=== PATIENT | male | born 1945 | race Caucasian/White ===

== ENCOUNTER 2017-07-08 10:03 | Outpatient (CLI) | payer MEDICARE ==
[2017-07-08 11:05] LABS: ALT (SGPT) 17 U/L (8-55); AST (SGOT) 33 U/L (5-34); Albumin 2.8 g/dL (3.4-4.8); Alkaline Phosphatase 144 U/L (40-150); Anion Gap 14 mmol/L (10-20); BUN (Urea Nitrogen) 7 mg/dL (8.4-25.7); Bilirubin, Total 1.9 mg/dL (0.2-1.2); Calc. Creatinine Clearance 0 mL/min (70-130); Calcium 8.6 mg/dL (7.8-10.44); Carbon Dioxide 30 mmol/L (23-31); Chloride 94 mmol/L (98-107); Estimated GFR-MDRD Greater than 90; Globulin 4.6 g/dL (2.4-3.5); Glucose 106 mg/dL (80-115); Potassium 3.4 mmol/L (3.5-5.1); Protein, Total 7.4 g/dL (5.8-8.1); Sodium 135 mmol/L (136-145)
[2017-07-08 11:40] LABS: Eosinophils 4 % (0-10); Hemoglobin 12.8 g/dL (14.0-18.0); Lymphocytes 12 % (21-51); MDiff Complete? YES; Mean Corpuscular HGB CONC 33.9 g/dL (32.0-36.0); Mean Corpuscular Volume 100.1 fl (80.0-94.0); Monocytes 10 % (0-10); Neutrophil 74 % (42-75); PLT Morphology Comment Appears Adequate; Platelet Count 318 thou/uL (130-400); RBC Distribution Width 11.8 % (11.5-14.5); Red Blood Cell (RBC) Count 3.78 mill/uL (4.70-6.10); White Blood Cell (WBC) Count 8.5 thou/uL (4.8-10.8)
== END 2017-07-08 10:04 | disposition home or self-care (01) ==
LOC: MADLABBHPM 10:03
PROVIDERS: ATTEND Family Medicine
DX: R60.9 Edema, unspecified (principal)
CPT/HCPCS: 36415; 80053; 83880; 84443; 85025

== ENCOUNTER 2017-08-08 14:24 | Outpatient (CLI) | payer MEDICARE ==
[2017-08-08 15:05] LABS: ALT (SGPT) 12 U/L (8-55); AST (SGOT) 29 U/L (5-34); Albumin 3.1 g/dL (3.4-4.8); Alkaline Phosphatase 177 U/L (40-150); Anion Gap 17 mmol/L (10-20); BUN (Urea Nitrogen) 9 mg/dL (8.4-25.7); Calc. Creatinine Clearance 0 mL/min (70-130); Calcium 9.4 mg/dL (7.8-10.44); Carbon Dioxide 26 mmol/L (23-31); Chloride 95 mmol/L (98-107); Estimated GFR-MDRD Greater than 90; Glucose 102 mg/dL (80-115); Potassium 4.1 mmol/L (3.5-5.1); Protein, Total 8.1 g/dL (5.8-8.1); Sodium 134 mmol/L (136-145)
== END 2017-08-08 14:25 | disposition home or self-care (01) ==
LOC: MADLABBHPM 14:24
PROVIDERS: ATTEND Family Medicine
DX: K70.30 Alcoholic cirrhosis of liver without ascites (principal)
CPT/HCPCS: 36415; 80053

== ENCOUNTER 2017-08-29 15:40 | Outpatient (CLI) | payer MEDICARE ==
[2017-08-29 16:07] LABS: #Basophils 0.1 thou/uL (0.0-0.2); #Eosinphils 0.3 thou/uL (0.0-0.7); #Lymphocytes 1.3 thou/uL (1.20-3.40); #Monocytes 0.7 thou/uL (0.11-0.59); #Neutrophils 4.4 thou/uL (1.40-6.50); %Basophils 0.9 % (0.0-1.0); %Lymphocytes 18.9 % (21.0-51.0); %Monocytes 10.8 % (0.0-10.0); %Neutrophils 65.4 % (42.0-75.0); Hemoglobin 11.6 g/dL (14.0-18.0); Mean Corpuscular HGB CONC 33.2 g/dL (32.0-36.0); Mean Corpuscular Hemoglobin 32.3 pg (27.0-31.0); Mean Corpuscular Volume 97.2 fl (80.0-94.0); Platelet Count 211 thou/uL (130-400); RBC Distribution Width 12.4 % (11.5-14.5); White Blood Cell (WBC) Count 6.7 thou/uL (4.8-10.8)
[2017-08-29 16:22] LABS: ALT (SGPT) 11 U/L (8-55); AST (SGOT) 28 U/L (5-34); Alkaline Phosphatase 160 U/L (40-150); Anion Gap 16 mmol/L (10-20); BUN (Urea Nitrogen) 9 mg/dL (8.4-25.7); Bilirubin, Total 1.6 mg/dL (0.2-1.2); CRP (Inflammatory) 3.01 mg/dL (= or < 0.5); Calc. Creatinine Clearance 0 mL/min (70-130); Carbon Dioxide 25 mmol/L (23-31); Chloride 101 mmol/L (98-107); Estimated GFR-MDRD Greater than 90; Globulin 4.6 g/dL (2.4-3.5); Glucose 92 mg/dL (80-115); Potassium 4.7 mmol/L (3.5-5.1); Protein, Total 7.6 g/dL (5.8-8.1); Sodium 137 mmol/L (136-145)
== END 2017-08-29 15:41 | disposition home or self-care (01) ==
LOC: MADLAB 15:40
PROVIDERS: ATTEND Orthopaedic Surgery
DX: T84.53XA Infection and inflammatory reaction due to internal right knee prosthesis, initial encounter (principal)
CPT/HCPCS: 36415; 80053; 85025; 85652; 86140

== ENCOUNTER 2018-07-07 14:56 | Emergency (ER) | payer MEDICARE ==
[2018-07-07 15:31] LABS: #Basophils 0.1 thou/uL (0.0-0.2); #Eosinphils 0.3 thou/uL (0.0-0.7); #Lymphocytes 2.2 thou/uL (1.20-3.40); %Basophils 1.1 % (0.0-1.0); %Eosinophils 2.9 % (0.0-10.0); %Lymphocytes 22.9 % (21.0-51.0); %Monocytes 10.1 % (0.0-10.0); %Neutrophils 63.1 % (42.0-75.0); Hemoglobin 11.7 g/dL (14.0-18.0); Mean Corpuscular HGB CONC 33.5 g/dL (32.0-36.0); Mean Corpuscular Hemoglobin 31.4 pg (27.0-31.0); Mean Corpuscular Volume 93.7 fL (78.0-98.0); Mean Platelet Volume 6.4 fL (7.4-10.4); Platelet Count 181 thou/uL (130-400); RBC Distribution Width 14.8 % (11.5-14.5); Red Blood Cell (RBC) Count 3.72 mill/uL (4.70-6.10); White Blood Cell (WBC) Count 9.6 thou/uL (4.8-10.8)
--- NOTE | 2018-07-07 16:19 | RAD ---
FOUR VIEWS RIGHT KNEE: Date: 07-07-18 History: Right knee pain. Comparison: None available. 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 Tips of the jyothi are not visualized. Increased density material was seen within the joint space, likely related to post-surgical change. No obvious fracture is seen. There is a prominent righ t knee joint effusion. There is also suggestion of fusion of the patellofemoral joint. The distal asp ect is not well delineated on this exam. Vascular calcifications are seen posterior to the knee. IMPRESSION: 1. Post-surgical changes related to right knee arthrodesis, and there also appears to be fusion of th e patellofemoral joint. Increased density material is seen within the joint space related to prior garcia rgery. 2. Suggestion of a moderately large joint effusion with calcification in a suprapatellar location. 3. Vascular calcifications. 4. Osteopenia. No obvious fracture is appreciated. POS: [facility]
== END 2018-07-07 17:50 | disposition short-term general hospital (02) ==
LOC: MADERS 14:56
DX: M86.9 Osteomyelitis, unspecified (principal); I48.91 Unspecified atrial fibrillation; K21.9 Gastro-esophageal reflux disease without esophagitis; I10 Essential (primary) hypertension; Z79.899 Other long term (current) drug therapy
CPT/HCPCS: 36415; 85025; 85652; 87070; 87077; 87186; 87205

== ENCOUNTER 2018-08-07 18:41 | Outpatient (CLI) | payer MEDICARE ==
[2018-08-07 18:57] LABS: ALT (SGPT) 10 U/L (8-55); AST (SGOT) 20 U/L (5-34); Albumin 1.9 g/dL (3.4-4.8); Alkaline Phosphatase 139 U/L (40-150); Anion Gap 14 mmol/L (10-20); BUN (Urea Nitrogen) 9 mg/dL (8.4-25.7); Bilirubin, Total 2.5 mg/dL (0.2-1.2); CK (CPK) 34 U/L (30-200); Calc. Creatinine Clearance 0 mL/min (70-130); Calcium 7.4 mg/dL (7.8-10.44); Carbon Dioxide 23 mmol/L (23-31); Chloride 97 mmol/L (98-107); Estimated GFR-MDRD Greater than 90; Glucose 69 mg/dL (80-115); Protein, Total 4.9 g/dL (5.8-8.1); Sodium 131 mmol/L (136-145)
== END 2018-08-07 18:42 | disposition home or self-care (01) ==
LOC: MADLAB 18:41
PROVIDERS: ATTEND Orthopaedic Surgery
DX: T84.53XD Infection and inflammatory reaction due to internal right knee prosthesis, subsequent encounter (principal); I11.0 Hypertensive heart disease with heart failure
CPT/HCPCS: 80053; 82550

== ENCOUNTER 2018-08-11 16:34 | Emergency (ER) | payer MEDICARE ==
[~2018-08-11 16:34] MED LIST: Norepinephrine 4 MG/4 ML VIAL ONE; Sodium Chloride 0.9% 1,000 ML BAG ONE; Sodium Chloride 0.9% 100 ML BAG ONE; Sodium Chloride 0.9% 500 ML BAG ONE
[2018-08-11 17:33] LABS: #Basophils 0.1 thou/uL (0.0-0.2); #Eosinphils 0.4 thou/uL (0.0-0.7); #Lymphocytes 1.7 thou/uL (1.20-3.40); #Monocytes 0.8 thou/uL (0.11-0.59); #Neutrophils 7.4 thou/uL (1.40-6.50); %Basophils 1.1 % (0.0-1.0); %Eosinophils 3.6 % (0.0-10.0); %Monocytes 7.5 % (0.0-10.0); %Neutrophils 71.7 % (42.0-75.0); Hemoglobin 11.9 g/dL (14.0-18.0); Mean Corpuscular HGB CONC 33.2 g/dL (32.0-36.0); Mean Corpuscular Hemoglobin 31.1 pg (27.0-31.0); Mean Corpuscular Volume 93.8 fL (78.0-98.0); Platelet Count 241 thou/uL (130-400); RBC Distribution Width 14.1 % (11.5-14.5); Red Blood Cell (RBC) Count 3.83 mill/uL (4.70-6.10); White Blood Cell (WBC) Count 10.4 thou/uL (4.8-10.8)
[2018-08-11 17:49] LABS: ALT (SGPT) 7 U/L (8-55); AST (SGOT) 20 U/L (5-34); Albumin 1.9 g/dL (3.4-4.8); Alkaline Phosphatase 140 U/L (40-150); Anion Gap 14 mmol/L (10-20); BUN (Urea Nitrogen) 12 mg/dL (8.4-25.7); Bilirubin, Total 2.6 mg/dL (0.2-1.2); Calc. Creatinine Clearance 0 mL/min (70-130); Calcium 7.7 mg/dL (7.8-10.44); Carbon Dioxide 20 mmol/L (23-31); Chloride 101 mmol/L (98-107); Estimated GFR-MDRD Greater than 90; Globulin 3.7 g/dL (2.4-3.5); Glucose 79 mg/dL (80-115); Potassium 3.8 mmol/L (3.5-5.1); Protein, Total 5.6 g/dL (5.8-8.1); Sodium 131 mmol/L (136-145)
[2018-08-11] MEDS ORDERED: Cefepime 1 GM VIAL ONE (17:50)
--- NOTE | 2018-08-11 18:18 | RAD ---
PORTABLE AP CHEST X-RAY: 08/11/2018 HISTORY: Shortness of breath. Low oxygen saturation. 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 COMPARISON: 04/02/2018 FINDINGS: A right-sided PICC line is noted in place with the tip overlying the expected location of the proxima l SVC. The patient is rotated to the right, accentuating the mediastinal structures and the cardiac silhouette. This is similar to the prior study. There is ectasia and tortuosity of the thoracic aor ta. There are diffuse increased interstitial and alveolar opacities throughout the left hemithorax, worrisome for an infectious process. The right lung is clear. The most inferior aspect of the left lateral costophrenic angle is not well seen. No other interval change. IMPRESSION: Diffuse increased interstitial and alveolar opacities throughout the left hemithorax. Findings are w orrisome for pneumonia. Followup to complete resolution is recommended. POS: [facility]
[2018-08-11 18:50] LABS: Bilirubin Moderate (Negative); Blood, Urine Negative (Negative); Clarity Slightly Cloudy (Clear); Glucose, Urine (Dipstick) Negative (Negative); Leukocyte Negative (Negative); Nitrite Negative (Negative); Protein, Urine (Dipstick) 30 mg/dL (Neg-Trace); Specific Gravity, Urine 1.015 (1.005-1.030); Urobilinogen 0.2 mg/dL (0.2-1.0)
[2018-08-11] MEDS ORDERED: Aspirin 325 MG TAB ONE (18:57)
[2018-08-11] MEDS ORDERED: Vancomycin HCl 500 MG VIAL ONE (18:57)
[2018-08-11 19:07] LABS: Bacteria/HPF 2+ HPF (None Seen); RBC/HPF 0-3 HPF (0-3); WBC/HPF 0-3 HPF (0-3)
[2018-08-11] MEDS ORDERED: Mag-Al Plus 1200 MG/1200 MG/120 MG/30 ML UDCUP ONE ×2 (19:10→19:37)
--- NOTE | 2018-08-11 19:28 | CT ---
CT CHEST WITHOUT CONTRAST: HISTORY: Dyspnea with shortness of breath and low oxygen saturation. COMPARISON: Chest x-ray from 08/11/2018 TECHNIQUE: Multiple contiguous axial images were obtained in a CT of the chest without contrast. Sagittal and c oronal reformats were performed. FINDINGS: The heart is at the upper limits of normal in size. Calcifications are seen in the coronary arteries and aorta. No hilar or mediastinal lymphadenopathy is appreciated on this limited noncontrast exami nation. There is a small left pleural effusion. There are diffuse air space opacities in the left lung. Inc reased interstitial markings are also seen in the left lung. There is a small area of air space opac ity in the right upper lobe. These findings are most likely secondary to multifocal infiltrates. At electasis is seen in the lung bases. A calcified granuloma is seen in the left lung base. The liver is cirrhotic in appearance. There is a small amount of ascites. Degenerative changes are seen in the spine. There is gynecomastia and edema in the chest wall soft tissues. IMPRESSION: 1. Multifocal infiltrates are likely secondary to pneumonia. 2. Small left pleural effusion. 3. Cirrhosis with ascites. POS: [facility]
[2018-08-11] MEDS ORDERED: Norepinephrine 4 MG/4 ML VIAL ONE (21:11)
[2018-08-11 21:17] LABS: Lactic Acid 2.8 mmol/L (0.5-2.2)
== END 2018-08-11 21:37 | disposition short-term general hospital (02) ==
LOC: MADERS 16:34
DX: A41.9 Sepsis, unspecified organism (principal); J18.9 Pneumonia, unspecified organism; I50.9 Heart failure, unspecified; R79.89 Other specified abnormal findings of blood chemistry; I11.0 Hypertensive heart disease with heart failure; K21.9 Gastro-esophageal reflux disease without esophagitis; F17.210 Nicotine dependence, cigarettes, uncomplicated; Z79.891 Long term (current) use of opiate analgesic; Z79.899 Other long term (current) drug therapy
CPT/HCPCS: 36415; 71045; 71250; 80053; 81003; 81015; 83605; 83880; 84484; 85025; 87040; 93005; 94760; 96365; 96366; 96367; 96374; J0692; J3370; J7050; J7070

== ENCOUNTER 2018-09-23 16:18 | Emergency (ER) | payer MEDICARE ==
[~2018-09-23 16:18] MED LIST changes: -Norepinephrine 4 MG/4 ML VIAL ONE; -Sodium Chloride 0.9% 1,000 ML BAG ONE; -Sodium Chloride 0.9% 100 ML BAG ONE; -Sodium Chloride 0.9% 500 ML BAG ONE; +Sodium Chloride Irrig Solution 250 ML BOT ONE
== END 2018-09-23 17:15 | disposition home or self-care (01) ==
LOC: MADERS 16:18
DX: T87.81 Dehiscence of amputation stump (principal); K21.9 Gastro-esophageal reflux disease without esophagitis; F17.210 Nicotine dependence, cigarettes, uncomplicated; Z79.891 Long term (current) use of opiate analgesic; Z79.899 Other long term (current) drug therapy
CPT/HCPCS: 99283